=== PATIENT | male | born 1940 | race Caucasian/White ===

== ENCOUNTER 2019-03-22 14:24 | Outpatient (CLI) | payer MEDICARE ==
--- NOTE | 2019-03-22 15:53 | ULT ---
THYROID ULTRASOUND: 03/22/19 HISTORY: Thyroid nodule. COMPARISON: None. FINDINGS: Thyroid isthmus measures 0.6 cm. Right thyroid lobe measures 1.6 x 5.0 x 2.5 cm. Left thyroid lobe measures 1.2 x 2.1 x 4.2 cm. There is a 0.3 x 0.3 x 0.5 cm solid nodule in the upper pole of the left thyroid lobe. There is a 1.3 x 1.5 x 0.9 cm solid nodule in the right thyroid lobe. IMPRESSION: Solid nodule in the right thyroid lobe with a TIRADS calculator score of TR3. Mildly suspicious. POS: OFF
== END 2019-03-22 14:25 | disposition home or self-care (01) ==
LOC: BICULT 14:24
PROVIDERS: ATTEND Family Medicine
DX: E04.1 Nontoxic single thyroid nodule (principal)
CPT/HCPCS: 76536

== ENCOUNTER 2020-03-26 12:23 | Outpatient (CLI) | payer MEDICARE, OTHER ==
[2020-03-27 13:50] LABS: SARS-CoV-2 MS2 Positive; SARS-CoV-2 N Gene Negative; SARS-CoV-2 S Gene Negative; SARS-CoV-2 orf1ab Negative
== END 2020-03-26 12:24 | disposition home or self-care (01) ==
LOC: LABBT 12:23
PROVIDERS: ATTEND Internal Medicine Cardiovascular Disease
DX: Z01.812 Encounter for preprocedural laboratory examination (principal); Z11.59 Encounter for screening for other viral diseases
CPT/HCPCS: 87635; U0003

== ENCOUNTER 2020-04-19 12:49 | Outpatient (CLI) | payer MEDICARE ==
--- NOTE | 2020-04-19 13:43 | ULT ---
US Thyroid STANDARD History: Thyroid nodule follow-up Comparison: Thyroid ultrasound March 2019 Findings: The isthmus measures 4 mm in AP dimension. Right lobe measures 4.2 x 1.5 x 2.3 cm and the l eft lobe measures 3.7 x 1.2 x 1.7 cm. The right interpolar solid mildly hypoechoic wider than tall nodule is unchanged in size measuring up to 1.5 cm. The small left thyroid slightly hypoechoic wider than tall 3 mm nodule is also unchanged. Impression: Unchanged bilateral thyroid nodules.
== END 2020-04-19 12:50 | disposition home or self-care (01) ==
LOC: BICULT 12:49
PROVIDERS: ATTEND Otolaryngology Plastic Surgery within the Head & Neck
DX: E04.2 Nontoxic multinodular goiter (principal)
CPT/HCPCS: 76536

== ENCOUNTER 2022-02-11 10:54 | Outpatient (CLI) | payer MEDICARE | END 2022-02-11 10:55 | disposition home or self-care (01) | LOC: BICRAD 10:54 | PROVIDERS: ATTEND Internal Medicine Cardiovascular Disease | DX: R06.00 Dyspnea, unspecified (principal); E87.70 Fluid overload, unspecified | CPT/HCPCS: 71046 ==

== ENCOUNTER 2022-05-19 13:22 | Outpatient (CLI) | payer MEDICARE | END 2022-05-19 13:23 | disposition home or self-care (01) | LOC: BICULT 13:22 | PROVIDERS: ATTEND Otolaryngology Plastic Surgery within the Head & Neck | DX: E04.1 Nontoxic single thyroid nodule (principal) | CPT/HCPCS: 76536 ==